=== PATIENT | female | born 1970 | race Caucasian/White ===

== ENCOUNTER 2017-04-25 09:37 | Emergency (ER) | payer OTHER ==
[~2017-04-25] VITALS: Ht 157.5 cm; Wt 77.7 kg
[~2017-04-25 09:37] MED LIST: ANAPROX DS550 M1 PO; BENTYL10 MG PO; Berocca Plus PO; Dilaudid PO; NAPROSYN500 MG PO; NORCO 7.5/321 TABLET PO; PERCOCET 10/1 TABLET PO; PROMETHAZINE HC25 M1 PO; Phenergan PO; PriLOSEC PO; Tylenol Regular Stre PO; VICODIN,LORT1 TABLET PO; ZOFRAN4 MG PO
[2017-04-25 11:28] LABS: HEMATOCRIT 39.6 % (36.0-46.0); MCH 32.2 PG (29.0-34.0); MCHC 33.8 G/DL (30.0-36.0); MCV 95.2 FL (83-99); MEAN PLAT.VOLUME 10.1 uM^3 (9.5-12.4); PLATELET COUNT 282 K/uL (156-360); RBC DIS.WIDTH-CV 12.6 % (11.8-14.6); RBC DIS.WIDTH-SD 44.6 % (39-53); RED BLOOD COUNT 4.16 M/uL (3.80-5.20); WHITE BLOOD COUNT 6.5 K/uL (4.1-10.2)
[2017-04-25 11:31] LABS: ADD MIUA? NO; BILIRUBIN NEGATIVE; BLOOD NEGATIVE; COLOR STRAW ((YELLOW)); GLUCOSE (STRIP) NEGATIVE; KETONES NEGATIVE; LEUKOCYTES NEGATIVE; NITRITE NEGATIVE; PROTEIN (STRIP) NEGATIVE; SPECIFIC GRAVITY 1.008 (1.000-1.030); UROBILINOGEN 0.2 MG/DL (0.2-1.0)
[2017-04-25 11:38] LABS: CHLORIDE 105 mEq/L (99-109); POTASSIUM 4.3 mEq/L (3.7-5.4); SODIUM 137 mEq/L (136-147)
[2017-04-25 11:40] LABS: GLUCOSE 93 mg/dL (70-99)
[2017-04-25 11:42] LABS: ANION GAP 10 MEQ/L (2-14); TOTAL BILIRUBIN 0.3 mg/dL (0.0-1.0)
[2017-04-25 11:44] LABS: ALKALINE PHOSPHATASE 84 IU/L (3-129)
[2017-04-25 11:46] LABS: GFR ESTIMATE (CALCULATED) > 59 mL/min/; UREA NITROGEN (BUN) 15 mg/dL (9-23)
[2017-04-25 11:54] LABS: QUANTITATIVE HCG < 4.0 MIU/ML
[2017-04-25 11:59] LABS: LIPASE 18 U/L (1.0-51.0)
[2017-04-25] MEDS ORDERED: PROMETHAZINE HC25 M1 PO (15:02)
[2017-04-25 15:09] VITALS: BP 140/85
== END 2017-04-25 15:09 | disposition home or self-care (01) ==
LOC: EME 09:37
PROVIDERS: Nurse Practitioner Family
DX: R10.84 Generalized abdominal pain (principal); R11.2 Nausea with vomiting, unspecified; R19.7 Diarrhea, unspecified; M54.9 Dorsalgia, unspecified; Z90.49 Acquired absence of other specified parts of digestive tract; Z90.710 Acquired absence of both cervix and uterus; Z86.718 Personal history of other venous thrombosis and embolism; F17.200 Nicotine dependence, unspecified, uncomplicated
CPT/HCPCS: 74177; 80053; 81003; 83690; 84702; 85027; J1630; J2270; J2405; J7030

== ENCOUNTER 2017-05-28 17:24 | Emergency (ER) | payer OTHER ==
[~2017-05-28] VITALS: Ht 157.5 cm; Wt 76.4 kg
[2017-05-28 18:25] LABS: HEMATOCRIT 40.9 % (36.0-46.0); MCV 94.5 FL (83-99); MEAN PLAT.VOLUME 9.6 uM^3 (9.5-12.4); PLATELET COUNT 405 K/uL (156-360); RBC DIS.WIDTH-CV 12.3 % (11.8-14.6); RBC DIS.WIDTH-SD 42.7 % (39-53); RED BLOOD COUNT 4.33 M/uL (3.80-5.20); WHITE BLOOD COUNT 9.6 K/uL (4.1-10.2)
[2017-05-28 18:34] LABS: CHLORIDE 99 mEq/L (99-109); POTASSIUM 3.8 mEq/L (3.7-5.4); SODIUM 136 mEq/L (136-147)
[2017-05-28 18:36] LABS: GLUCOSE 103 mg/dL (70-99)
[2017-05-28 18:37] LABS: ANION GAP 13 MEQ/L (2-14)
[2017-05-28 18:38] LABS: TOTAL BILIRUBIN 0.3 mg/dL (0.0-1.0)
[2017-05-28 18:39] LABS: ALKALINE PHOSPHATASE 91 IU/L (3-129)
[2017-05-28 18:40] LABS: GFR ESTIMATE (CALCULATED) > 59 mL/min/
[2017-05-28 18:41] LABS: UREA NITROGEN (BUN) 24 mg/dL (9-23)
[2017-05-28 18:43] LABS: LIPASE 28 U/L (1.0-51.0)
[2017-05-28 18:49] LABS: QUANTITATIVE HCG < 4.0 MIU/ML
[2017-05-28 21:24] LABS: TROP-I INTERPRETATION NEGATIVE; TROPONIN-I < 0.01 ng/mL (0.0-0.30)
[2017-05-28] MEDS ORDERED: PEPCID20 MG PO (22:23)
[2017-05-28 22:31] VITALS: BP 132/37
[2017-05-28 22:46] LABS: ADD MIUA? YES; BILIRUBIN NEGATIVE; BLOOD NEGATIVE; COLOR YELLOW ((YELLOW)); GLUCOSE (STRIP) NEGATIVE; KETONES 5; LEUKOCYTES SMALL; NITRITE NEGATIVE; PROTEIN (STRIP) NEGATIVE; SPECIFIC GRAVITY 1.017 (1.000-1.030); UROBILINOGEN 0.2 MG/DL (0.2-1.0)
[2017-05-28 22:52] LABS: BACTERIA NONE SEEN /HPF; EPITHELIAL CELLS NONE SEEN /HPF; HYALINE CASTS 0-5 /LPF; MUCUS TRACE /LPF; RED BLOOD CELLS 0-5 /HPF (0-5); UCUL ADDED? NO; WHITE BLOOD CELLS 0-5 /HPF (0-5)
== END 2017-05-28 22:32 | disposition home or self-care (01) ==
LOC: EME 17:24
DX: K29.70 Gastritis, unspecified, without bleeding (principal); Z87.11 Personal history of peptic ulcer disease; Z90.49 Acquired absence of other specified parts of digestive tract; Z90.710 Acquired absence of both cervix and uterus; Z86.718 Personal history of other venous thrombosis and embolism; F17.200 Nicotine dependence, unspecified, uncomplicated
CPT/HCPCS: 74177; 80053; 81003; 83605; 83690; 84484; 84702; 85027; 93005; 99281; 99285; J2270; J2405; J3010; J7030

== ENCOUNTER 2017-06-11 12:11 | Emergency (ER) | payer OTHER ==
[~2017-06-11] VITALS: Ht 157.5 cm; Wt 76.3 kg
[~2017-06-11 12:11] MED LIST changes: +PEPCID20 MG PO
[2017-06-11 12:55] LABS: HEMATOCRIT 39.8 % (36.0-46.0); MCH 33.2 PG (29.0-34.0); MCHC 34.4 G/DL (30.0-36.0); MCV 96.4 FL (83-99); MEAN PLAT.VOLUME 9.3 uM^3 (9.5-12.4); PLATELET COUNT 341 K/uL (156-360); RBC DIS.WIDTH-CV 12.8 % (11.8-14.6); RBC DIS.WIDTH-SD 45.4 % (39-53); RED BLOOD COUNT 4.13 M/uL (3.80-5.20); WHITE BLOOD COUNT 6.1 K/uL (4.1-10.2)
[2017-06-11 13:05] LABS: CHLORIDE 102 mEq/L (99-109); POTASSIUM 4.3 mEq/L (3.7-5.4); SODIUM 137 mEq/L (136-147)
[2017-06-11 13:08] LABS: GLUCOSE 100 mg/dL (70-99)
[2017-06-11 13:09] LABS: ANION GAP 12 MEQ/L (2-14)
[2017-06-11 13:10] LABS: TOTAL BILIRUBIN 0.3 mg/dL (0.0-1.0)
[2017-06-11 13:11] LABS: ALKALINE PHOSPHATASE 90 IU/L (3-129); GFR ESTIMATE (CALCULATED) > 59 mL/min/
[2017-06-11 13:12] LABS: UREA NITROGEN (BUN) 10 mg/dL (9-23)
[2017-06-11 13:15] LABS: LIPASE 17 U/L (1.0-51.0)
[2017-06-11 13:21] LABS: QUANTITATIVE HCG < 4.0 MIU/ML
[2017-06-11 13:37] LABS: ADD MIUA? NO; BILIRUBIN NEGATIVE; BLOOD NEGATIVE; COLOR YELLOW ((YELLOW)); GLUCOSE (STRIP) NEGATIVE; KETONES NEGATIVE; LEUKOCYTES NEGATIVE; NITRITE NEGATIVE; PROTEIN (STRIP) NEGATIVE; SPECIFIC GRAVITY 1.012 (1.000-1.030); UCUL ADDED? NO; UROBILINOGEN 0.2 MG/DL (0.2-1.0)
[2017-06-11] MEDS ORDERED: CARAFATE100 MG/ML PO (15:54)
[2017-06-11] MEDS ORDERED: ZOFRAN4 MG PO (16:39)
[2017-06-11 16:51] VITALS: BP 143/87
== END 2017-06-11 16:54 | disposition home or self-care (01) ==
LOC: EME 12:11
DX: R10.9 Unspecified abdominal pain (principal); Z86.718 Personal history of other venous thrombosis and embolism; F17.200 Nicotine dependence, unspecified, uncomplicated; Z88.0 Allergy status to penicillin; Z88.2 Allergy status to sulfonamides; Z88.8 Allergy status to other drugs, medicaments and biological substances
CPT/HCPCS: 74177; 80053; 81003; 83690; 84702; 85027; 99281; 99285; J2270; J2405; J3010; J7030

== ENCOUNTER 2017-06-23 13:17 | Emergency (ER) | payer OTHER ==
[~2017-06-23] VITALS: Ht 157.5 cm; Wt 75.5 kg
[~2017-06-23 13:17] MED LIST changes: +CARAFATE100 MG/ML PO
[2017-06-23 14:08] LABS: HEMATOCRIT 39.2 % (36.0-46.0); MCH 33.5 PG (29.0-34.0); MCHC 33.9 G/DL (30.0-36.0); MCV 98.7 FL (83-99); MEAN PLAT.VOLUME 9.6 uM^3 (9.5-12.4); PLATELET COUNT 302 K/uL (156-360); RBC DIS.WIDTH-CV 12.5 % (11.8-14.6); RBC DIS.WIDTH-SD 45.9 % (39-53); RED BLOOD COUNT 3.97 M/uL (3.80-5.20); WHITE BLOOD COUNT 7.8 K/uL (4.1-10.2)
[2017-06-23 14:16] LABS: CHLORIDE 107 mEq/L (99-109); SODIUM 139 mEq/L (136-147)
[2017-06-23 14:19] LABS: GLUCOSE 107 mg/dL (70-99)
[2017-06-23 14:20] LABS: ANION GAP 7 MEQ/L (2-14)
[2017-06-23 14:21] LABS: TOTAL BILIRUBIN 0.2 mg/dL (0.0-1.0)
[2017-06-23 14:22] LABS: ALKALINE PHOSPHATASE 85 IU/L (3-129); GFR ESTIMATE (CALCULATED) > 59 mL/min/
[2017-06-23 14:23] LABS: UREA NITROGEN (BUN) 16 mg/dL (9-23)
[2017-06-23 14:26] LABS: LIPASE 20 U/L (1.0-51.0)
[2017-06-23 14:29] LABS: ADD MIUA? YES; BILIRUBIN NEGATIVE; BLOOD NEGATIVE; COLOR YELLOW ((YELLOW)); GLUCOSE (STRIP) NEGATIVE; KETONES NEGATIVE; LEUKOCYTES TRACE; NITRITE NEGATIVE; PROTEIN (STRIP) NEGATIVE; SPECIFIC GRAVITY 1.015 (1.000-1.030); UROBILINOGEN 0.2 MG/DL (0.2-1.0)
[2017-06-23 14:33] LABS: BACTERIA NONE SEEN /HPF; EPITHELIAL CELLS RARE /HPF; MUCUS TRACE /LPF; RED BLOOD CELLS 0-5 /HPF (0-5); UCUL ADDED? NO; WHITE BLOOD CELLS 0-5 /HPF (0-5)
[2017-06-23] MEDS ORDERED: ZOFRAN ODT4 MG PO (15:40)
[2017-06-23] MEDS ORDERED: BENTYL20 MG PO (15:40)
[2017-06-23 15:42] LABS: PHENCYCLIDINE NEGATIVE (25 ng/mL); THC CANNABINOIDS NEGATIVE (50 ng/mL)
[2017-06-23 15:43] LABS: ADD MEDTOX COMMENT Y; AMPHETAMINE NEGATIVE (500 ng/mL); BARBITURATES NEGATIVE (200 ng/mL); BENZODIAZEPINES NEGATIVE (150 ng/mL); COCAINE PRESUMPTIVE POSITIVE (150 ng/mL); INTERNAL CONTROLS VALID? YES; METHADONE NEGATIVE (200 ng/mL); METHAMPHETAMINE NEGATIVE (500 ng/mL); OPIATES (MORPHINE) PRESUMPTIVE POSITIVE (100 ng/mL); OXYCODONE NEGATIVE (100 ng/mL); PROPOXYPHENE NEGATIVE (300 ng/mL); TRICYCLIC ANTIDEPRESSANTS NEGATIVE (300 ng/mL)
[2017-06-23 16:08] LABS: OPIATES QUANTITATIVE VALUE 0 NG/ML
[2017-06-23 16:30] VITALS: BP 130/79
== END 2017-06-23 16:33 | disposition home or self-care (01) ==
LOC: EME 13:17
PROVIDERS: Nurse Practitioner Family
DX: R10.13 Epigastric pain (principal); R11.2 Nausea with vomiting, unspecified; F14.10 Cocaine abuse, uncomplicated; F17.200 Nicotine dependence, unspecified, uncomplicated; Z86.718 Personal history of other venous thrombosis and embolism; Z88.0 Allergy status to penicillin; Z88.2 Allergy status to sulfonamides
CPT/HCPCS: 74177; 80053; 81003; 83690; 84999; 85027; 99281; 99285; J0500; J1885; J2405; J7030